=== PATIENT | male | born 1970 | race Two or more races ===

== ENCOUNTER 2025-10-21 15:27 | Emergency (ER) | payer MEDICAID, OTHER ==
[~2025-10-21] VITALS: Ht 177.8 cm; Wt 90.6 kg
[2025-10-21] MEDS: HYDROcodone-ACET 10/325MG TAB PO ONE (16:49)
--- NOTE | 2025-10-21 16:56 | ED.PDOC ---
Back pain HPI HPI Comments A 55 YEAR OLD MALE PRESENTS TO THE ED WITH COMPLAINT OF LOWER BACK PAIN THAT RADIATES DOWN RIGHT LEG. PATIENT STATES HE HAS A HISTORY OF CHRONIC LOWER BACK PAIN AND NOTES THAT IT HAS BEEN WORSE FOR THE PAST 1 MONTH. PATIENT REPORTS HIS LOWER BACK PAIN HAS BEEN RADIATING DOWN HIS RIGHT LEG AND IS WORSE WITH MOVEMENT. THE PATIENT ALSO NOTES HE HAS A HISTORY OF HYPERTENSION, BUT HAS NOT TAKEN BLOOD PRESSURE MEDICATION FOR SEVERAL YEARS. PATIENT DENIES SADDLE ANESTHESIA, URINARY INCONTINENCE, BOWEL INCONTINENCE, FEVER, CHILLS, SHORTNESS OF BREATH, CHEST PAIN, ABDOMINAL PAIN, NAUSEA, VOMITING, HEADACHE, OR OTHER COMPLAINTS. NO OTHER SYMPTOMS OR MODIFYING FACTORS AT THIS TIME. PATIENT IS ALERT, ORIENTED X 4, AND HAS STEADY GAIT. Chief Complaint: Back Pain Time Seen by MD: 15:57 Reviewed Notes: Nurses Notes, Medications, Allergies Allergies: Coded Allergies: Penicillins (Verified Allergy, Unknown, 10/21/25) Home Meds Active Scripts Hydrocodone-Acetaminophen (Hydrocodone Bitartrate/AC 5-325 mg) 1 Tab Tab, 1 TAB PO BID, #14 TAB Prov:DUNG EWING 10/21/25 Amlodipine Besylate (Amlodipine Besylate) 10 Mg Tab, 1 TAB PO DAILY, #20 TAB Prov:DUNG EWING 10/21/25 Information Source: Patient Mode of Arrival: Ambulatory Timing: Weeks Duration: Since onset Location of Back pain: (B) Lumbar Radiates to: Posterior: (L) Buttocks, (L) Thigh Radiates to: Lateral: (L) Buttocks, (L) Thigh Severity: Moderate Prehospital treatment: None Quality: Aching, Cramping Onset: Spontaneous History of: Chronic Back Pain Modifying Factors: Movement Associated signs and symptoms: None Past Medical History PAST MEDICAL HISTORY: HTN Past Medical History (Other): CHRONIC LOWER BACK PAIN Surgical History: Denies all surgeries Family History Family History: Reviewed,noncontributory to illness Social History Smoker: Non-Smoker Alcohol: Denies ETOH Use Drugs: Denies Drug Use Lives In: Home Constitutional: denies: chills, diaphoresis, fatigue, fever, malaise, sweats, weakness, others EENTM: denies: blurred vision, double vision, ear bleeding, ear discharge, ear drainage, ear pain, ear ringing, eye pain, eye redness, hearing loss, mouth pain, mouth swelling, nasal discharge, nose bleeding, nose congestion, nose pain, photophobia, tearing, throat pain, throat swelling, voice changes, others Respiratory: denies: cough, hemoptysis, orthopnea, SOB at rest, shortness of breath, SOB with excertion, stridor, wheezing, others Cardiovascular: denies: chest pain, dizzy spells, diaphoresis, Dyspnea on exertion, edema, irregular heart beat, left arm pain, lightheadedness, palpitations, PND, syncope, others Gastrointestinal: denies: abdomen distended, abdominal pain, blood streaked bowels, constipated, diarrhea, dysphagia, difficulty swallowing, hematemesis, melena, nausea, poor appetite, poor fluid intake, rectal bleeding, rectal pain, vomiting, others Genitourinary: denies: burning, dysuria, flank pain, frequency, hematuria, incontinence, penile discharge, penile sore, pain, testicle pain, testicle swelling, urgency, others Neurological: denies: dizziness, fainting, headache, left sided numbness, left sided weakness, numbness, paresthesia, pre-existing deficit, right sided numbness, right sided weakness, seizure, speech problems, tingling, tremors, weakness, others Musculoskeletal: reports: back pain (LOWER BACK PAIN THAT RADIATES DOWN RIGHT LEG), muscle pain; denies: gout, joint pain, joint swelling, muscle stiffness, neck pain, others Integumetry: denies: bruises, change in color, change in hair/nails, dryness, laceration, lesions, lumps, rash, wounds, others Allergic/Immunocompromised: denies: Difficulty Healing, Frequent Infections, Hives, Itching, others Hematologic/Lymphatic: denies: anemia, blood clots, easy bleeding, easy bruising, swollen glands, others Endocrine: denies: excessive hunger, excessive sweating, excessive thirst, excessive urination, flushing, intolerance to cold, intolerance to heat, unexplained weight gain, unexplained weight loss, others Psychiatric: denies: anxiety, bipolar disorder, depression, hopeless, panic disorder, schizophrenia, sleepless, suicidal, others All Other Systems: Reviewed and Negative Physical Exam General Appearance: No Apparent Distress, Obese HEENT: Normal ENT Inspection, PERRL/EOMI, Pharynx Normal, TMs Normal Neck: Full Range of Motion, Non-Tender, Normal, Normal Inspection Respiratory: Chest Non-Tender, Lungs Clear, No Accessory Muscle Use, No Respiratory Distress, Normal Breath Sounds Cardiovascular: No Edema, No JVD, No Murmur, No Gallop, Normal Peripheral Pulses, Regular Rate/Rhythm Breast Exam: Deferred Gastrointestinal: No Organomegaly, Non Tender, No Pulsatile Mass, Normal Bowel Sounds, Soft Genitalia: Deferred Pelvic: Deferred Rectal: Deferred Extremities: No calf tenderness, Normal capillary refill, Normal inspection, Normal range of motion, Non-tender, No pedal edema Musculoskeletal : Location: Bilateral Extremity Location: Back Apperance: Tenderness: Moderate (TENDERNESS AND MUSCLE SPASM ON LOWER BACK, NO BONY TENDERNESS, SWELLING AND DEFORMITY. ) Neurologic: Alert, can conveyor feeder II-XII nml as Tested, No Motor Deficits, Normal Affect, Normal Mood, No Sensory Deficits Cerebellar Function: Normal Reflexes: Normal Skin: Dry, Normal Color, Warm Peripheral Pulses: 2+ carotid (R), 2+ carotid (L), 2+ dorsalis pedis (R), 2+ dorsalis pedis (L) Lymphatic: No Adenopathy Was a procedure done? Was a procedure done?: No Back Pain Differential Dx Differential Diagnosis: Musculoskeletal Pain, Other (DDD OF LOWER BACK ) Other Differential Diagnosis DDD, LUMBAR RADICULOPATHY, CHRONIC PAIN EXACERBATION X-Ray, Labs, Meds, VS Vital Signs Date Time Temp Pulse Resp B/P (MAP) Pulse Ox O2 Delivery O2 Flow Rate FiO2 10/21/25 16:52 82 10/21/25 16:52 99.8 82 17 176/110 (132) 96 99.8 10/21/25 16:49 176/110 10/21/25 15:30 98.2 88 18 169/104 96 98.2 Current Medications Medications (Trade) Dose Ordered Sig/Alena Route Start Time Stop Time Status Last Admin Acetaminophen/ Hydrocodone Bitart ([place] 10/325MG Tab) 1 tab ONCE ONCE PO 10/21/25 16:45 10/21/25 16:46 DC 10/21/25 16:49 Amlodipine Besylate (Norvasc Tablet) 5 mg ONCE ONCE PO 10/21/25 16:45 10/21/25 16:46 DC 10/21/25 16:49 ORDERING PHYSICIAN: DUNG EWING PROCEDURE(s): LUMB2 - LUMBAR SPINE 3 VIEW REASON: LOW BACK PAIN TO RIGHT LOWER LEG ORDER NUMBER(s): [id number], ACCESSION NUMBER(s): [id number] EXAM: XY LUMBAR SPINE 3 VIEW HISTORY: LOW BACK PAIN TO RIGHT LOWER LEG COMPARISON: None TECHNIQUE: AP and lateral views of the lumbar spine and spot lateral of the lumbosacral junction were performed. FINDINGS: Lumbar alignment is maintained. There is moderate disc space narrowing with with marginal osteophytes and facet arthrosis involving the L4-L5 and L5-S1 spaces. There is a linear lucency projecting over the mid L4 vertebral body. IMPRESSION: Moderate discogenic and spondylotic degenerative changes from L4-S1. Linear lucency across the L4 vertebral body likely represents artifact; however, if there is midline pain, recommend CT or MRI for assessment of an underlying pressure fracture. ATED BY: CASIMIRO MCINTYRE MD DICTATED DATE/TIME: 10/21/251736 SIGNED BY: CASIMIRO MCINTYRE MD SIGNED DATE/TIME: 10/21/251736 CC: X-Ray, Labs, Meds, VS Comment EXTERNAL MEDICAL RECORDS REVIEWED: [NONE] INDEPENDENT HISTORIANS: [NONE] SOCIAL DETERMINANTS OF HEALTH: [NONE] LABS ORDERED: NONE REVIEWED AND INTERPRETED RESULTS: NONE IMAGING ORDERED: XR L-SPINE TREATMENTS ORDERED: NORCO 10/325 MG P.O., AMLODIPINE 5 MG P.O. PROCEDURES PERFORMED: NONE CRITICAL CARE TIME: NONE I HAVE DISCUSSED THE PATIENT WITH THE ATTENDING PHYSICIAN DR. DOCKERY AND HE AGREES WITH THE PATIENT'S PLAN OF CARE AND DISPOSITION. BASED ON HISTORY OF PRESENT ILLNESS, AND PHYSICAL EXAM, PATIENT WILL BE DISCHARGED HOME. DISCUSSED PLAN FOR DISCHARGE HOME WITH RX [NORCO 5/325 MG AND AMLODIPINE]. MEDICATION WARNINGS GIVEN. SHARED DECISION MAKING: PATIENT INSTRUCTED TO FOLLOW UP WITH PRIMARY CARE PROVIDER IN 1-2 DAYS FOR RE-EVALUATION OF SYMPTOMS. PATIENT VERBALIZES UNDERSTANDING TO RETURN TO ED FOR NEW OR WORSENING SYMPTOMS OR IF FOLLOW UP WITH PCP CANNOT BE OBTAINED. PATIENT FEELS COMFORTABLE GOING HOME AT THIS TIME. ALL QUESTIONS ADDRESSED AT TIME OF DISCHARGE. Images Reviewed?: Images reviewed and evaluated by me Time of 1ST Reevaluation: 17:58 Reevaluation 1ST: Improved Patient Education/Counseling: Diagnosis, Treatment, Need For Follow Up Family Education/Counseling: Diagnosis, Treatment, Need For Follow Up Medical Screening: No EMC Exist At This Time SEPSIS Sepsis Screen Date sepsis recognized/suspect: Oct 21, 2025 Time Sepsis recognized/suspect: 153 Recent Procedure: No On Antibiotic Therapy: No Respiratory Rate >20: No Heart Rate >90: No Temp<36 C (96.8 F) or >38.3 C: No SBP <90 or MAP <65 mmHG: No New Acute Mental Status Change: No Is the patient on CPAP, BIPAP,: No Physician Orders Lumbar Spine 3 View (10/21/25 16:53) Vital Signs Date Time Temp Pulse Resp B/P (MAP) Pulse Ox O2 Delivery O2 Flow Rate FiO2 10/21/25 16:52 82 10/21/25 16:52 99.8 82 17 176/110 (132) 96 99.8 10/21/25 16:49 176/110 10/21/25 15:30 98.2 88 18 169/104 96 98.2 Medications Medications Dose Ordered Sig/Alena Route Start Time Stop Time Status Last Admin Dose Admin Acetaminophen/ Hydrocodone Bitart 1 tab ONCE ONCE PO 10/21/25 16:45 10/21/25 16:46 DC 10/21/25 16:49 Amlodipine Besylate 5 mg ONCE ONCE PO 10/21/25 16:45 10/21/25 16:46 DC 10/21/25 16:49 Departure 1 Departure Time of Disposition: 18:00 Impression: Primary Impression: DDD (degenerative disc disease), lumbar Qualified Codes: M51.362 - Other intervertebral disc degeneration, lumbar region with discogenic back pain and lower extremity pain Additional Impressions: Lumbar radiculopathy HTN (hypertension) Qualified Codes: I10 - Essential (primary) hypertension Medical non-compliance Disposition: HOME / SELF CARE / HOMELESS Condition: Stable Additional Instructions: FOLLOW-UP WITH PCP IN 1 TO 2 DAYS. TAKE MEDICATIONS PRESCRIBED. RETURN TO ED FOR ANY NEW OR WORSENING SYMPTOMS. e-Prescriptions Hydrocodone-Acetaminophen (Hydrocodone Bitartrate/AC 5-325 mg) 1 Tab Tab 1 TAB PO BID, #14 TAB Prov: DUNG EWING 10/21/25 Amlodipine Besylate (Amlodipine Besylate) 10 Mg Tab 1 TAB PO DAILY, #20 TAB Prov: DUNG EWING 12/12/25 Discharged With: Self, Relative Critical Care Note Critical Care Time?: No Stability Stability form required: No I personally scribed for DUNG EWING ([email or web address]) on 10/21/25 at 16:56. Electronically submitted by Avinash Tay ([email or web address]). I personally scribed for DUNG EWING ([email or web address]) on 10/21/25 at 17:41. Electronically submitted by Avinash Tay ([email or web address]). DUNG EWING Oct 21, 2025 16:56
--- NOTE | 2025-10-21 17:37 | DVH ---
EXAM: XY LUMBAR SPINE 3 VIEW HISTORY: LOW BACK PAIN TO RIGHT LOWER LEG COMPARISON: None TECHNIQUE: AP and lateral views of the lumbar spine and spot lateral of the lumbosacral junction were performed. FINDINGS: Lumbar alignment is maintained. There is moderate disc space narrowing with with marginal osteophytes and facet arthrosis involving the L4-L5 and L5-S1 spaces. There is a linear lucency projecting over the mid L4 vertebral body. IMPRESSION: Moderate discogenic and spondylotic degenerative changes from L4-S1. Linear lucency across the L4 vertebral body likely represents artifact; however, if there is midline pain, recommend CT or MRI for assessment of an underlying pressure fracture.
[2025-10-21] MEDS ORDERED: AMLO1TAB23 PO (17:52)
[2025-10-21] MEDS ORDERED: HYDR-4902 PO (17:52)
[2025-10-21 17:55] VITALS: BP 148/92; PULSE 82; RESP 17; TEMP 99.8; O2SAT 96
== END 2025-10-21 17:55 | disposition home or self-care (01) ==
LOC: ER 15:27
DX: M51.16 Intervertebral disc disorders with radiculopathy, lumbar region (principal); I10 Essential (primary) hypertension; Z79.891 Long term (current) use of opiate analgesic; Z91.199 Patient's noncompliance with other medical treatment and regimen due to unspecified reason; Z88.0 Allergy status to penicillin
CPT/HCPCS: 72100